=== PATIENT | male | born 1980 | race Caucasian/White ===

== ENCOUNTER 2021-09-15 11:58 | Emergency (ER) | payer SELFPAY ==
[~2021-09-15] VITALS: Ht 190.5 cm; Wt 121.1 kg
--- NOTE | 2021-09-15 12:03 | NUR ---
[id number] C/O WEAKNESS/LIGHTHEADEDNESS X 30MINS HEALTH ADMINISTRATOR. BG 250 HEALTH ADMINISTRATOR. PT STATED THAT HE GOT A TOOTH REMOVED 2 DAYS AGO AND HAS NOT BEEN COMPLUIANT WITH HIS ANTIBIOTICS. PT BLOOD PRESSURE IS ELEVATED UPON ARRIVAL, MD LONG. ATTACHED TO MONITOR. PROVIDED WITH WARM BLANKET FOR COMFORT. AWAITING MD MCCOLLUM.
[2021-09-15] MEDS ORDERED: IV NS 0.9% 1,000 ML BAG IV ONE (12:30)
[2021-09-15 13:23] LABS: BASOPHILS % (AUTO) 0.3 % (0.0-2.0); EOSINOPHILS % (AUTO) 0.1 % (0.0-6.0); HEMATOCRIT 43 % (39-51); HEMOGLOBIN 14.8 g/dL (13.5-17.5); LYMPHOCYTES # (AUTO) 1.4 K/uL (0.8-4.8); LYMPHOCYTES % (AUTO) 12.9 % (20.0-44.0); MEAN CORPUSCULAR HGB CONC 35 g/dl (31.0-36.0); MEAN CORPUSCULAR VOLUME 88 fL (80-96); MONOCYTES # (AUTO) 0.6 K/uL (0.1-1.30); MONOCYTES % (AUTO) 5.3 % (2.0-12.0); NEUTROPHILS # (AUTO) 8.9 K/uL (1.8-8.9); NEUTROPHILS % (AUTO) 81.4 % (43.0-81.0); PLATELET COUNT (AUTO) 282 K/uL (150-450); RED BLOOD CELL COUNT(AUTO) 4.85 MIL/uL (4.5-6.0); WHITE BLOOD COUNT (AUTO) 10.9 K/uL (4.3-11.0)
[2021-09-15 13:27] LABS: CALCIUM, SERUM 9.1 mg/dL (8.5-10.1); CARBON DIOXIDE 24 mmol/L (21-32); CHLORIDE 104 mmol/L (98-107); CREATININE 1.3 mg/dL (0.6-1.3); GLUCOSE 111 mg/dL (74-106); POTASSIUM 3.5 mmol/L (3.5-5.1); SODIUM SERUM 139 mmol/L (136-145); UREA NITROGEN, BLOOD 11 mg/dL (7-18)
[2021-09-15 13:33] LABS: ALANINE AMINOTRANSFERASE 66 U/L (12-78); ALBUMIN 4.2 g/dL (3.4-5.0); ALKALINE PHOSPHATASE 76 U/L (46-116); ASPARTATE AMINOTRANSFERASE 27 U/L (15-37); BILIRUBIN,DIRECT 0.1 mg/dL (0.0-0.2); BILIRUBIN,TOTAL 0.6 mg/dL (0.2-1.0); TOTAL PROTEIN, SERUM 7.5 g/dL (6.4-8.2)
[2021-09-15 13:57] LABS: BILIRUBIN,URINE NEGATIVE (NEGATIVE); COLOR,URINE YELLOW (YELLOW); LEUKOCYTE ESTERASE ,URINE NEGATIVE (NEGATIVE); NITRITE, URINE NEGATIVE (NEGATIVE); PH,URINE 6.5 (5.0-8.0); PROTEIN,URINE NEGATIVE (NEGATIVE); UGLUCOSE NEGATIVE (NEGATIVE); UROBILINOGEN,URINE 0.2 EU/dL (0.2)
--- NOTE | 2021-09-15 14:31 | NUR ---
IV removed. Catheter intact and site benign. Pressure and 4x4 applied to site. No bleeding noted.Patient discharged to home in stable condition. Written and verbal after care instructions given. Patient verbalizes understanding of instruction.
[2021-09-15 14:44] VITALS: BP 148/101
== END 2021-09-15 14:45 | disposition home or self-care (01) ==
LOC: ER 12:02
DX: R42 Dizziness and giddiness (principal)
CPT/HCPCS: 36415; 71045; 80048; 80076; 81003; 84484; 85025; 93005; 96360; 99285; J7030